=== PATIENT | female | born 1980 | race Two or more races ===

== ENCOUNTER 2018-07-22 23:54 | Emergency (ER) | payer MEDICAID ==
[~2018-07-22] VITALS: Ht 167.6 cm; Wt 94.8 kg
[2018-07-23 00:14] VITALS: BP 139/86
== END 2018-07-23 02:08 | disposition home or self-care (01) ==
LOC: ER 07-23 00:02
DX: T16.1XXA Foreign body in right ear, initial encounter (principal); F17.210 Nicotine dependence, cigarettes, uncomplicated; Y93.89 Activity, other specified; X58.XXXA Exposure to other specified factors, initial encounter; Y99.8 Other external cause status; Y92.89 Other specified places as the place of occurrence of the external cause
CPT/HCPCS: 69209

== ENCOUNTER 2022-07-23 21:12 | Emergency (ER) | payer MEDICAID ==
[~2022-07-23] VITALS: Ht 167.6 cm; Wt 98.7 kg
[2022-07-23 22:06] VITALS: BP 153/85
[2022-07-24] MEDS ORDERED: KETOROLAC TROMETH 30 MG/ML 1ML VIAL IM ONE (01:15)
== END 2022-07-24 01:25 | disposition home or self-care (01) ==
LOC: ER 21:12
DX: M25.511 Pain in right shoulder (principal); F17.210 Nicotine dependence, cigarettes, uncomplicated
CPT/HCPCS: 96372; 99283; J1885